=== PATIENT | female | born 1975 | race Caucasian/White ===

== ENCOUNTER → 2020-06-27 00:35 | Outpatient (CLI) | payer MEDICAID, SELFPAY ==
[2020-06-27 18:02] LABS: SARS-CoV-2 RNA PCR Negative
== END ==
PROVIDERS: PCP Obstetrics & Gynecology; Visit Provider Internal Medicine Gastroenterology
DX: Z01.812 Encounter for preprocedural laboratory examination (principal); Z20.822 Contact with and (suspected) exposure to COVID-19
CPT/HCPCS: C9803; U0003; U0005

== ENCOUNTER 2020-06-30 01:19 | Day surgery (SDC) | payer MEDICAID, SELFPAY ==
[2020-06-22 10:58] VITALS: BMI 23.8
[2020-06-30 12:43] VITALS: BP 101/81; PULSE 101; RESP 18; TEMP 36.9; O2SAT 99
[2020-06-30] MEDS: LACTATED RINGERS 1,000 ML 150 ML IV CONT (12:49)
--- NOTE | 2020-06-30 13:40 | P.PNAN_ITS ---
Anes - Initial Pre Proc Eval Procedure: Operation Date: 06/30/20 14:00 Proposed Procedures p Colonoscopy - Savage Espinoza MD Date/Time: 06/30/20 13:40 Surgeon: Savage Espinoza MD Pre Op Diagnosis: melena Patient Data Age: 44 Gender: F Height: 5 ft 6 in Weight: 63.4 kg Last Vital Signs Temp 98.5 F 06/30/20 12:43 Pulse 101 H 06/30/20 12:43 Resp 18 06/30/20 12:43 BP 101/81 06/30/20 12:43 Pulse Ox 99 06/30/20 12:43 Allergies Allergy/AdvReac Type Severity Reaction Status Date / Time latex Allergy Intermediate Rash Verified 06/30/20 12:41 Home Medications Medication Instructions Recorded Confirmed Type albuterol sulfate 2 puff INHALATION Q4H PRN 06/22/20 06/30/20 History escitalopram oxalate 10 mg PO DAILY 06/22/20 06/30/20 History hydroxyzine HCl 25 mg PO DAILY 06/22/20 06/30/20 History loratadine [Claritin] 10 mg PO DAILY 06/22/20 06/30/20 History Patient hx anesthesia problems: none Family hx anesthesia problems: none PMFSH Past Medical History Medical History (Updated 06/30/20 @ 13:43 by Naeem Avila MD) Anxiety Bronchitis Depression GERD (gastroesophageal reflux disease) H/O malignant neoplasm of female breast Social History Social History Years smoked: 30 Smoking status: Current every day smoker Tobacco type: cigarettes Alcohol intake: current Substance use: current Substance use type: marijuana Other substance usage details: DAILY-DUE TO CANCER TREATMENTS Living arrangements: with family Spiritual care concerns: No Anes - Eval Final PreProcedure Day of Procedure 06/30/20 13:40 Patient weight: normal Heart: regular rate and rhythm Lungs: clear to auscultation Airway: Mallampati scale class II Neurological: alert and oriented Last oral intake: >/= 8 hours ASA classification: III Emergent: no Anesthetic plan: proceed Anesthesia type and monitoring: general GIVS and standard monitoring Informed Consent: The patient's anesthetic plan and its attendant risks and bene fits were discussed with the patient/family/POA. Questions were solicited and answers provided to the satisfaction of the patient/family/POA.
--- NOTE | 2020-06-30 14:15 | PM.HPGS ---
History of Present Illness History of Present Illness Consent: Risks, benefits, and alternatives have been discussed and questions answered. Patient agrees to proceed with procedure. Chief complaint: melena Narrative: Jamin Calixto is a 44 year old female with breast cancer, intermittent rectal bleeding- never had colonoscopy Review of Systems Constitutional: Constitutional: Denies headache(s) and Denies weakness Eyes: Eyes: Denies blurry vision ENT: Reports Normal hearing present, Denies headache(s) and Denies neck pain Cardiovascular: Cardiovascular: Denies chest pain and Denies dyspnea Respiratory: Respiratory: Denies dyspnea Gastrointestinal: Gastrointestinal: Reports no additional gastrointestinal complaints Genitourinary: Genitourinary: Denies dysuria Musculoskeletal: Musculoskeletal: Denies neck pain Integumentary/Breasts: Skin/Breast: Denies dry skin Neurologic: Reports Normal hearing present, Denies headache(s) and Denies weakness Psychiatric: Psychiatric: Denies anxiety Endocrine: Endocrine: Denies change in body appearance Hematologic/Lymphatic: Hematologic/Lymphatic: Denies easy bleeding Allergic/Immunologic: Allergic/Immunologic: Denies urticaria PMFSH Past Medical History Medical History (Updated 06/30/20 @ 14:16 by Savage Espinoza MD) Anxiety Bronchitis Depression GERD (gastroesophageal reflux disease) H/O malignant neoplasm of female breast Rectal bleeding Social History Social History Years smoked: 30 Smoking status: Current every day smoker Tobacco type: cigarettes Alcohol intake: current Substance use: current Substance use type: marijuana Other substance usage details: DAILY-DUE TO CANCER TREATMENTS Living arrangements: with family Spiritual care concerns: No Meds Home Medications and Allergies Home Medications Medication Instructions Recorded Confirmed Type albuterol sulfate 2 puff INHALATION Q4H PRN 06/22/20 06/30/20 History escitalopram oxalate 10 mg PO DAILY 06/22/20 06/30/20 History hydroxyzine HCl 25 mg PO DAILY 06/22/20 06/30/20 History loratadine [Claritin] 10 mg PO DAILY 06/22/20 06/30/20 History Allergies Allergy/AdvReac Type Severity Reaction Status Date / Time latex Allergy Intermediate Rash Verified 06/30/20 12:41 Vital Signs Vital Signs - 24 hr 06/30/20 12:43 Temperature 98.5 F Pulse Rate 101 H Respiratory Rate 18 Blood Pressure 101/81 Pulse Oximetry 99 Exam Const: General: comfortable and no acute distress HENMT: General nose exam: Normal nares present Eyes: General: appearance normal, both eyes and all related structures Neck: Neck: no JVD Resp: Auscultation: clear to auscultation bilaterally Cardio: Rate: regular rate Rhythm: regular rhythm GI: Inspection: non-distended GI Palp: Yes Soft to palpation Skin: General skin exam: normal color Neuro: General: gait normal Speech: normal speech Extrem: General: normal to inspection Psych: Mental Status: mental status grossly normal Assessment and Plan Assessment and plan (1) Rectal bleeding: Code(s): K62.5 - Hemorrhage of anus and rectum Status: Acute Assessment and Plan: colonoscopy to assess source of bleeding (2) H/O malignant neoplasm of female breast: Code(s): Z85.3 - Personal history of malignant neoplasm of breast Status: Inactive
[2020-06-30 14:47] VITALS: BP 134/87; PULSE 81; RESP 20; O2SAT 100
[2020-06-30 14:57] VITALS: BP 132/86; PULSE 74; RESP 13; O2SAT 100
== END 2020-06-30 15:30 | disposition home or self-care (01) ==
PROVIDERS: PCP Obstetrics & Gynecology; Visit Provider Internal Medicine Gastroenterology
PROC: 0DJD8ZZ Inspection of Lower Intestinal Tract, Via Natural or Artificial Opening Endoscopic (ICD-10-PCS; CPT 45378; principal; 2020-06-30 14:00)
DX: K62.5 Hemorrhage of anus and rectum (principal); D12.5 Benign neoplasm of sigmoid colon; K57.30 Diverticulosis of large intestine without perforation or abscess without bleeding; K64.8 Other hemorrhoids; K60.2 Anal fissure, unspecified; K21.9 Gastro-esophageal reflux disease without esophagitis; F41.8 Other specified anxiety disorders; Z85.3 Personal history of malignant neoplasm of breast; F17.210 Nicotine dependence, cigarettes, uncomplicated; F12.90 Cannabis use, unspecified, uncomplicated
CPT/HCPCS: 45385; 88305; J2704; J7120